=== PATIENT | male | born 1940 | race Caucasian/White ===

== ENCOUNTER → 2016-12-01 | Outpatient (CLI) | payer MEDICARE, BC ==
[~2016-12-01] MED LIST: ASPIRIN PO; CHOL5000 PO; CLOP75TA PO; CYAN2500 PO; FLAXSEED OIL PO; KRIL1CAP9 PO; MAGNESIUM PO; METO-93 PO; MULTIVITAMIN PO; OXYM30SP NS; REGADENOSON 0.4 MG/5 ML SYRINGE ONE; SIMV20TA3 PO; TRAZ50TA18 PO
== END | disposition home or self-care (01) ==
LOC: CFH 11:57
PROVIDERS: ATTEND Internal Medicine Cardiovascular Disease
DX: R53.83 Other fatigue (principal); R06.02 Shortness of breath
CPT/HCPCS: 78452; 93017; A9502; J2785

== ENCOUNTER → 2017-08-10 | Outpatient (CLI) | payer MEDICARE, BC ==
[~2017-08-10] MED LIST changes: -REGADENOSON 0.4 MG/5 ML SYRINGE ONE
== END | disposition home or self-care (01) ==
LOC: CFH 14:19
PROVIDERS: ATTEND Registered Nurse Registered Nurse First Assistant
DX: M50.323 Other cervical disc degeneration at C6-C7 level (principal); M50.223 Other cervical disc displacement at C6-C7 level; M43.12 Spondylolisthesis, cervical region; M48.02 Spinal stenosis, cervical region; M25.78 Osteophyte, vertebrae
CPT/HCPCS: 72050; 72141

== ENCOUNTER → 2017-11-03 | Outpatient (CLI) | payer MEDICARE, BC | END | disposition home or self-care (01) | LOC: CFH 13:35 | PROVIDERS: ATTEND Neurological Surgery | DX: M50.123 Cervical disc disorder at C6-C7 level with radiculopathy (principal); M43.12 Spondylolisthesis, cervical region | CPT/HCPCS: 72125 ==

== ENCOUNTER → 2017-11-25 | Outpatient (CLI) | payer MEDICARE, BC | END | disposition home or self-care (01) | LOC: CFH 15:27 | PROVIDERS: ATTEND Otolaryngology | DX: J34.2 Deviated nasal septum (principal); J34.3 Hypertrophy of nasal turbinates; J34.89 Other specified disorders of nose and nasal sinuses | CPT/HCPCS: 70486 ==

== ENCOUNTER 2018-01-17 10:06 | Emergency (ER) | payer MEDICARE, BC ==
[~2018-01-17] VITALS: Ht 172.7 cm; Wt 69.5 kg
[2018-01-17] MEDS ORDERED: HYDROmorphone 1 MG/ML, 1ML IM ONE (13:00)
[2018-01-17] MEDS ORDERED: DIAZEPAM 5 MG TABLET PO ONE (13:00)
[2018-01-17] MEDS ORDERED: HYDROmorphone 1 MG/ML, 1ML ONE (13:49)
[2018-01-17] MEDS ORDERED: DIAZEPAM 5 MG TABLET ONE (13:49)
[2018-01-17 16:21] VITALS: BP 146/80
== END 2018-01-17 16:31 | disposition home or self-care (01) ==
LOC: ED 15:00
DX: M54.31 Sciatica, right side (principal); I25.2 Old myocardial infarction; I10 Essential (primary) hypertension
CPT/HCPCS: 72148; 96372; 99284; J1170

== ENCOUNTER 2018-04-20 09:26 | Inpatient (IN) | payer BC, MEDICARE ==
[~2018-04-20] VITALS: Ht 172.7 cm; Wt 63.9 kg
[~2018-04-20 09:26] MED LIST changes: +TRAZ-136 PO; -TRAZ50TA18 PO
[2018-04-20] MEDS ORDERED: SODIUM CHLORIDE 0.9% 1,000 ML IV ONE (10:13)
[2018-04-20 10:21] VITALS: BP 127/70
[2018-04-20 11:02] LABS: BASOPHILS # (AUTO) 0.06 x10^3/uL (0-0.1); BASOPHILS % (AUTO) 1 % (0-1); EOSINOPHILS # (AUTO) 0.07 x10^3/uL (0-0.4); EOSINOPHILS % (AUTO) 1 % (1-7); LYMPHOCYTES # (AUTO) 1.73 x10^3/uL (1-3.4); LYMPHOCYTES % (AUTO) 28 % (22-44); MD NO; MEAN CORPUSCULAR HEMOGLOBIN 30.5 pg (27.5-34.5); MEAN CORPUSCULAR HGB CONC 33.1 g/dL (33.2-36.2); MEAN CORPUSCULAR VOLUME 92.3 fL (81-97); MEAN PLATELET VOLUME 7.3 fL (7.4-10.4); MONOCYTES # (AUTO) 0.58 x10^3/uL (0.2-0.8); MONOCYTES % (AUTO) 9 % (2-9); NEUTROPHILS # (AUTO) 3.76 x10^3/uL (1.8-6.8); NEUTROPHILS % (AUTO) 61 % (42-75); PLATELET COUNT 265 x10^3/uL (130-400); RED BLOOD COUNT 4.14 x10^6/uL (4.38-5.82); RED CELL DISTRIBUTION WIDTH 15.6 % (9.4-14.8)
[2018-04-20] MEDS ORDERED: VERAPAMIL 2.5 MG/ML, 2ML ONE (12:12)
[2018-04-20] MEDS ORDERED: TICAGRELOR 90 MG TABLET ONE (12:12)
[2018-04-20] MEDS ORDERED: FENTANYL PF 100 MCG/2ML ONE (12:12)
[2018-04-20] MEDS ORDERED: MIDAZOLAM 1 MG/ML, 5ML ONE (12:12)
[2018-04-20] MEDS ORDERED: HEPARIN 1,000 UNITS/ML, 10ML ONE (12:13)
[2018-04-20] MEDS ORDERED: BIVALIRUDIN 250 MG ONE ×2 (12:13→13:45)
[2018-04-20] MEDS ORDERED: SODIUM CHLORIDE 0.9% 1,000 ML IV SCH (13:04)
[2018-04-20] MEDS ORDERED: BIVALIRUDIN 250 MG in DEXTROSE 5% 50 ML IV SCH (13:04)
[2018-04-20] MEDS ORDERED: BISACODYL 5 MG EC TABLET PO PRN (13:30)
[2018-04-20] MEDS ORDERED: ZOLPIDEM 5MG TABLET PO PRN (13:30)
[2018-04-20] MEDS ORDERED: TEMPLATE NON-FORMULARY MED. (Trazodone Hcl** 50 MG) PO SCH (13:30)
[2018-04-20 14:48] VITALS: BP 125/75
[2018-04-20] MEDS: TRAZODONE MC SCH ×2 (15:53→22:00)
[2018-04-20] MEDS: TICAGRELOR 90 MG TABLET PO SCH (20:05)
[2018-04-20 20:15] VITALS: BP 103/67
[2018-04-20] MEDS ORDERED: SIMVASTATIN 20 MG TABLET PO SCH (21:00)
[2018-04-20] MEDS ORDERED: TRAZODONE 50MG TABLET PO SCH (21:00)
[2018-04-20] MEDS: ACETAMINOPHEN 325 MG TABLET PO PRN (23:46)
[2018-04-21 00:55] VITALS: BP 104/64
[2018-04-21] MEDS: ACETAMINOPHEN 325 MG TABLET PO PRN (04:01)
[2018-04-21 05:55] LABS: ANION GAP 8 mmol/L (5-15); CALCIUM 8.5 mg/dL (8.5-10.1); CHLORIDE 111 mmol/L (98-107); CREATININE 0.76 mg/dL (0.7-1.3)
[2018-04-21] MEDS: TRAZODONE MC SCH ×2 (06:00→14:00)
[2018-04-21] MEDS ORDERED: CHOLECALCIFEROL 1,000 UNIT TABLET PO SCH (09:00)
[2018-04-21] MEDS ORDERED: METOPROLOL SUCCINATE 50 MG TAB.ER.24H PO SCH (09:00)
[2018-04-21] MEDS ORDERED: ASPIRIN 81 MG TABLET EC PO SCH (09:00)
[2018-04-21 09:15] VITALS: BP 102/67
[2018-04-21] MEDS: TICAGRELOR 90 MG TABLET PO SCH (09:16)
[2018-04-21 15:30] VITALS: BP 120/72
== END 2018-04-21 16:49 | disposition home or self-care (01) | DRG 246 ==
LOC: CACL 09:26 → ORIP 13:04 → 5SO 13:28 → DCLOUNGE 04-21 16:38
PROVIDERS: ADMIT Internal Medicine Cardiovascular Disease; ATTEND Internal Medicine Cardiovascular Disease
PROC: 027035Z Dilation of Coronary Artery, One Artery with Two Drug-eluting Intraluminal Devices, Percutaneous Approach (ICD-10-PCS; principal; 2018-04-20)
PROC: 4A023N7 Measurement of Cardiac Sampling and Pressure, Left Heart, Percutaneous Approach (ICD-10-PCS; 2018-04-20)
PROC: B2111ZZ Fluoroscopy of Multiple Coronary Arteries using Low Osmolar Contrast (ICD-10-PCS; 2018-04-20)
DX: I25.10 Atherosclerotic heart disease of native coronary artery without angina pectoris (principal); I50.43 Acute on chronic combined systolic (congestive) and diastolic (congestive) heart failure; E23.0 Hypopituitarism; I48.0 Paroxysmal atrial fibrillation; I10 Essential (primary) hypertension; M50.30 Other cervical disc degeneration, unspecified cervical region; N52.9 Male erectile dysfunction, unspecified; E78.2 Mixed hyperlipidemia; E11.9 Type 2 diabetes mellitus without complications; Z79.82 Long term (current) use of aspirin; Z82.49 Family history of ischemic heart disease and other diseases of the circulatory system; Z79.899 Other long term (current) drug therapy; Z95.5 Presence of coronary angioplasty implant and graft; I11.0 Hypertensive heart disease with heart failure
CPT/HCPCS: 36415; 80048; 82040; 85018; 85025; 93005; 93458; 99156; 99157; C1769; C1894; C9600; G0378; J0583; J1644; J2250; J3010; C1725; C1874; C1887; J7030; Q9967

== ENCOUNTER → 2018-06-24 | Outpatient (CLI) | payer MEDICARE, BC ==
[2018-06-24 12:32] LABS: HCT (SEDRATE) 43.8 % (39.2-51.8)
[2018-06-24 12:33] LABS: BASOPHILS # (AUTO) 0.04 x10^3/uL (0-0.1); BASOPHILS % (AUTO) 1 % (0-1); EOSINOPHILS # (AUTO) 0.04 x10^3/uL (0-0.4); EOSINOPHILS % (AUTO) 1 % (1-7); LYMPHOCYTES # (AUTO) 2.04 x10^3/uL (1-3.4); LYMPHOCYTES % (AUTO) 31 % (22-44); MD NO; MEAN CORPUSCULAR HEMOGLOBIN 30.4 pg (27.5-34.5); MEAN CORPUSCULAR HGB CONC 32.8 g/dL (33.2-36.2); MEAN CORPUSCULAR VOLUME 92.8 fL (81-97); MEAN PLATELET VOLUME 8.4 fL (7.4-10.4); MONOCYTES # (AUTO) 0.65 x10^3/uL (0.2-0.8); MONOCYTES % (AUTO) 10 % (2-9); NEUTROPHILS # (AUTO) 3.88 x10^3/uL (1.8-6.8); NEUTROPHILS % (AUTO) 58 % (42-75); PLATELET COUNT 210 x10^3/uL (130-400); RED BLOOD COUNT 4.64 x10^6/uL (4.38-5.82); RED CELL DISTRIBUTION WIDTH 14.9 % (9.4-14.8)
[2018-06-24 12:46] LABS: ALBUMIN 3.9 g/dL (3.4-5.0); ANION GAP 5 mmol/L (5-15); CALCIUM 9.3 mg/dL (8.5-10.1); CHLORIDE 109 mmol/L (98-107)
[2018-06-24 12:50] LABS: ALANINE AMINOTRANSFERASE 24 U/L (12-78); ALKALINE PHOSPHATASE 89 U/L (45-117); BILIRUBIN,TOTAL 0.7 mg/dL (0.2-1.0); CREATINE KINASE, TOTAL 101 U/L (39-308); CREATININE 0.87 mg/dL (0.7-1.3); TOTAL PROTEIN 7.1 g/dL (6.4-8.2)
== END | disposition home or self-care (01) ==
LOC: CFH 10:46
PROVIDERS: ATTEND Internal Medicine Geriatric Medicine
DX: E78.5 Hyperlipidemia, unspecified (principal); I10 Essential (primary) hypertension; R52 Pain, unspecified
CPT/HCPCS: 36415; 80053; 82550; 85025; 85651

== ENCOUNTER → 2019-01-24 | Outpatient (CLI) | payer MEDICARE, BC ==
[~2019-01-24] MED LIST changes: +REGADENOSON 0.4 MG/5 ML SYRINGE ONE; -TRAZ-136 PO; +TRAZ50TA66 PO
== END | disposition home or self-care (01) ==
LOC: CVU 06:39
PROVIDERS: ATTEND Internal Medicine Cardiovascular Disease
DX: I08.8 Other rheumatic multiple valve diseases (principal); I25.10 Atherosclerotic heart disease of native coronary artery without angina pectoris; I10 Essential (primary) hypertension; I70.0 Atherosclerosis of aorta
CPT/HCPCS: 0399T; 78452; 93017; 93306; A9502; J2785

== ENCOUNTER 2019-02-15 13:06 | Outpatient (CLI) | payer MEDICARE, BC ==
[~2019-02-15 13:06] MED LIST changes: -REGADENOSON 0.4 MG/5 ML SYRINGE ONE
[2019-02-15 16:11] LABS: ANION GAP 8 mmol/L (5-15); CALCIUM 9.3 mg/dL (8.5-10.1); CHLORIDE 107 mmol/L (98-107); CREATININE 0.99 mg/dL (0.7-1.3)
== END 2019-02-15 23:59 | disposition home or self-care (01) ==
LOC: CFH 13:06
PROVIDERS: ATTEND Anesthesiology
DX: Z01.810 Encounter for preprocedural cardiovascular examination (principal)
CPT/HCPCS: 36415; 80048

== ENCOUNTER → 2019-07-14 | Outpatient (CLI) | payer MEDICARE, BC ==
[~2019-07-14] MED LIST changes: +ASPI-496 PO; +LISI-167 PO; +ROSU10TA2 PO
== END | disposition home or self-care (01) ==
LOC: RAD 15:08
PROVIDERS: ATTEND Registered Nurse
DX: M47.817 Spondylosis without myelopathy or radiculopathy, lumbosacral region (principal); M51.37 Other intervertebral disc degeneration, lumbosacral region; M51.27 Other intervertebral disc displacement, lumbosacral region; M48.05 Spinal stenosis, thoracolumbar region; M48.07 Spinal stenosis, lumbosacral region; N28.1 Cyst of kidney, acquired; R10.9 Unspecified abdominal pain
CPT/HCPCS: 72148; 74021

== ENCOUNTER → 2020-03-02 | Outpatient (CLI) | payer MEDICARE, BC ==
[~2020-03-02] MED LIST changes: -OXYM30SP NS; +OXYM30SP27 NS; +SIMV20TA19 PO; -SIMV20TA3 PO
== END | disposition home or self-care (01) ==
LOC: CFH 12:35
PROVIDERS: ATTEND Nurse Practitioner Family
DX: J43.9 Emphysema, unspecified (principal); I25.10 Atherosclerotic heart disease of native coronary artery without angina pectoris; Q25.49 Other congenital malformations of aorta
CPT/HCPCS: 71250

== ENCOUNTER 2020-06-06 14:09 | Outpatient (CLI) | payer MEDICARE, BC | END 2020-06-06 23:59 | disposition home or self-care (01) | LOC: CVU 14:09 | PROVIDERS: ATTEND Family Medicine | DX: I70.213 Atherosclerosis of native arteries of extremities with intermittent claudication, bilateral legs (principal) | CPT/HCPCS: 93922 ==

== ENCOUNTER → 2020-06-15 | Outpatient (CLI) | payer MEDICARE, BC ==
[~2020-06-15] MED LIST changes: +OMNIPAQUE 350 MG/ML, 100ML BOTTLE ONE
== END | disposition home or self-care (01) ==
LOC: CFH 11:35
PROVIDERS: ATTEND Internal Medicine Gastroenterology
DX: K40.91 Unilateral inguinal hernia, without obstruction or gangrene, recurrent (principal); K86.1 Other chronic pancreatitis; N28.1 Cyst of kidney, acquired; K59.00 Constipation, unspecified
CPT/HCPCS: 74177; Q9967

== ENCOUNTER 2020-08-08 11:01 | Outpatient (CLI) | payer MEDICARE, BC ==
[~2020-08-08 11:01] MED LIST changes: -OMNIPAQUE 350 MG/ML, 100ML BOTTLE ONE
== END 2020-08-08 23:59 | disposition home or self-care (01) ==
LOC: CFH 11:01 → EDSTATUS 11:30 → CFH 23:59
PROVIDERS: ATTEND Internal Medicine Gastroenterology
DX: N28.1 Cyst of kidney, acquired (principal); K76.89 Other specified diseases of liver; R53.83 Other fatigue; R14.0 Abdominal distension (gaseous); K59.00 Constipation, unspecified; K86.1 Other chronic pancreatitis; F41.9 Anxiety disorder, unspecified
CPT/HCPCS: 74181

== ENCOUNTER → 2020-08-13 | Outpatient (CLI) | payer MEDICARE, BC ==
[~2020-08-13] MED LIST changes: +SINCALIDE (KINEVAC) 5 MCG ONE
== END | disposition home or self-care (01) ==
LOC: RAD 12:09
PROVIDERS: ATTEND Internal Medicine Gastroenterology
DX: R14.0 Abdominal distension (gaseous) (principal); R53.83 Other fatigue; K59.00 Constipation, unspecified; K86.1 Other chronic pancreatitis; F41.9 Anxiety disorder, unspecified
CPT/HCPCS: 78227; A9537; J2805

== ENCOUNTER → 2021-01-09 | Outpatient (CLI) | payer MEDICARE, BC ==
[~2021-01-09] MED LIST changes: +OMNIPAQUE 350 MG/ML, 100ML BOTTLE ONE; -SINCALIDE (KINEVAC) 5 MCG ONE
== END | disposition home or self-care (01) ==
LOC: CFH 14:23
PROVIDERS: ATTEND Family Medicine
DX: N28.1 Cyst of kidney, acquired (principal); K86.1 Other chronic pancreatitis; I77.4 Celiac artery compression syndrome; I70.8 Atherosclerosis of other arteries
CPT/HCPCS: 74174; Q9967

== ENCOUNTER → 2021-04-01 | Outpatient (CLI) | payer MEDICARE, BC ==
[~2021-04-01] MED LIST changes: -OMNIPAQUE 350 MG/ML, 100ML BOTTLE ONE; +REGADENOSON 0.4 MG/5 ML SYRINGE ONE
== END | disposition home or self-care (01) ==
LOC: CFH 07:16
PROVIDERS: ATTEND Internal Medicine Cardiovascular Disease
DX: I08.8 Other rheumatic multiple valve diseases (principal); I21.19 ST elevation (STEMI) myocardial infarction involving other coronary artery of inferior wall; I10 Essential (primary) hypertension; E78.5 Hyperlipidemia, unspecified; I25.2 Old myocardial infarction; I25.10 Atherosclerotic heart disease of native coronary artery without angina pectoris
CPT/HCPCS: 78452; 93017; 93306; 93356; A9502; J2785